=== PATIENT | male | born 1965 | race Caucasian/White ===

== ENCOUNTER 2024-10-23 07:31 | Day surgery (SDC) | payer OTHER ==
[~2024-10-23] VITALS: Ht 170.2 cm; Wt 90.9 kg
[~2024-10-23 07:31] MED LIST: ACETAMINOPHEN/ISO-OSM 1000 MG/100 ML BOTTLE IV ONE; CHOL200059 PO; DEXAMETHASONE SOD PHOS 4 MG/ML VIAL ONE; FentaNYL CITRATE PF 100 MCG/2 ML VIAL ONE; KETOROLAC TROMETHAMINE 60 MG/2 ML VIAL IM ONE; LIDOCAINE/PF 2% 5 ML SYRINGE IVP ONE; METF-1211 PO; MIDAZOLAM HCL 2 MG/2 ML VIAL ONE; ONDANSETRON HCL 4 MG/2 ML VIAL ONE; PROPOFOL 1% 20 ML VIAL IVP ONE; RINGERS SOLUTION,LACTATED 1,000 ML IV ONE; ROCURONIUM BROMIDE 10 MG/ML 5 ML VIAL ONE; ROSU10TA72 PO; SEMA0.258 SQ; SUCCINYLCHOLINE CHLORIDE 20 MG/ML 10 ML VIAL ONE
[2024-10-23 08:18] LABS: PLATELET COUNT (AUTO) 186 K/uL (150-450); RED BLOOD CELL COUNT(AUTO) 4.95 MIL/uL (4.50-5.90); RED CELL DISTRIBUTION WIDTH 14.3 % (11.5-14.5); WHITE BLOOD COUNT (AUTO) 6.0 K/uL (4.5-11.0)
[2024-10-23 08:31] LABS: CALCIUM, TOTAL 9.4 mg/dL (8.8-10.5); CREATININE 0.94 mg/dL (0.60-1.30); GLOMERULAR FILTR. RATE CALC > 60 mL/min (>60); GLUCOSE,RANDOM 144 mg/dL (70-110); SODIUM SERUM 142 mmol/L (136-145); UREA NITROGEN, BLOOD 11 mg/dL (7-18)
[2024-10-23 08:36] LABS: ASPARTATE AMINOTRANSFERASE 18 U/L (15-37); TOTAL PROTEIN, SERUM 6.7 g/dL (6.4-8.2)
[2024-10-23] MEDS: ETHYL ALCOHOL 62% ANTISEPTIC NASAL SANITIZER 0.6 ML AMPUL NASAL ONE (08:36)
[2024-10-23] MEDS: CHLORHEXIDINE GLUCONATE 2% TOWELETTE [2'S/6'S] TP SCH (08:36)
[2024-10-23] MEDS: RINGERS SOLUTION,LACTATED 1,000 ML IV ONE (08:37)
[2024-10-23] MEDS ORDERED: CHLORHEXIDINE GLUCONATE 4% 118 ML TOPICAL LIQUID TP ONE (08:40)
[2024-10-23] MEDS ORDERED: ROPIVACAINE HCL/PF 0.2% 100 ML ED ONE (10:34)
[2024-10-23] MEDS: BUPIVACAINE HCL/PF 0.25% 30 ML VIAL ONE (11:26)
[2024-10-23] MEDS: BUPIVACAINE LIPOSOME/PF 1.3%-13.3MG/ML SUSP 20 ML VIAL INJ ONE (11:26)
[2024-10-23] MEDS ORDERED: OxyCODONE HCL/ACETAMINOPHEN 5-325 MG TABLET ONE (12:59)
[2024-10-23] MEDS: OxyCODONE HCL/ACETAMINOPHEN 5-325 MG TABLET PO ONE (13:01)
== END 2024-10-23 13:35 | disposition home or self-care (01) ==
LOC: SURGERY 07:31
PROVIDERS: ATTEND Specialist
DX: M25.612 Stiffness of left shoulder, not elsewhere classified (principal); M75.42 Impingement syndrome of left shoulder; M65.812 Other synovitis and tenosynovitis, left shoulder; S46.212A Strain of muscle, fascia and tendon of other parts of biceps, left arm, initial encounter; M75.112 Incomplete rotator cuff tear or rupture of left shoulder, not specified as traumatic; Z79.01 Long term (current) use of anticoagulants; Z79.899 Other long term (current) drug therapy; G89.18 Other acute postprocedural pain; Z98.890 Other specified postprocedural states; X58.XXXA Exposure to other specified factors, initial encounter; Y93.89 Activity, other specified; Y92.89 Other specified places as the place of occurrence of the external cause; Y99.8 Other external cause status
CPT/HCPCS: 29824; 64415; 29826; 80053; 85025; 85610; 85730; 36415; 93005; J0666; J1885; J3490 ×3; J2704; J0690; J1100; J3010; J2250; J2405; J0330; J2795; J7120; J0131